=== PATIENT | male | born 1980 | race Hispanic/Latino ===

== ENCOUNTER 2016-12-05 06:04 | Day surgery (SDC) | payer OTHER ==
[2016-12-02 09:51] VITALS: BMI 27.6
[2016-12-05 06:43] VITALS: RESP 20
[2016-12-05] MEDS ORDERED: Lactated Ringer's 1,000 ML IV ONE ×2 (06:56→11:35)
[2016-12-05] MEDS ORDERED: Propofol 10 mg/ml Inj (20 ML) ONE (07:15)
--- NOTE | 2016-12-05 07:30 | CP.PCM.PN ---
Subjective - Date & Time of Evaluation Date of Evaluation: 12/05/16 Time of Evaluation: 07:26 - Subjective Subjective: 36 year old male with no PMH presents to [facility] for left ankle scope, arthoscopic OCD repair, and deltoid ligament repair by Dr. Lr. Patient states that he has been experienced pain over the last few months and getting progressively worse, worse with ambulation or running. He states he did not eat or drink anything since 6pm last night. Denies n/v/sob/cp/chills or f. Meds: migraine medication, can't recall name Allergies: procaine, cephalexin, rojo, strawberry PSH: left ankle surgery, right knee surgery FH: none SH: denies smoking, occasionally drinking, denies elicited drug use Objective - Vital Signs/Intake and Output Vital Signs (last 24 hours): Temp Pulse Resp BP Pulse Ox 97.9 F 59 L 20 140/72 98 12/05/16 06:33 12/05/16 06:44 12/05/16 06:33 12/05/16 06:33 12/05/16 06:33 - Constitutional Appears: Well, Non-toxic, No Acute Distress - Extremities Exam Additional comments: Vasc: DP PT 2/4 bilaterally, SILK SCREEN ETCHER <3 seconds, temperature WNL, no edema noted Ortho: MM is 5/5 in all four compartments bilaterally, moderate pain with palpation to the medial ankle at deltoid ligaments and medial plantar arch, some pain with left ankle ROM Neuro: gross sensation intact bilaterally Derm: skin is hydrate, no lesions noted, derm WNL - Neurological Exam Neurological Exam: Alert, Awake, Oriented x3 - Psychiatric Exam Psychiatric exam: Normal Affect, Normal Mood Assessment and Plan - Assessment and Plan (Free Text) Assessment: 36 year old with no PMH was seen for [facility] surgery for left ankle scope, arthroscopic OCD repair, and deltoid ligament repair Plan: Pt was seen and examined in [facility] Pt NPO status was confirmed All pre-op testing and clearance was in the chart Pt has exhausted all conservative treatment at this time and is opting for surgical intervention Pt was explained procedure and post-operative course All pt's questions were answered to sanctification No guarantees were made Pt understands all risks, benefits, and complications of procedure Pt will follow up with Dr. Lr
[2016-12-05] MEDS ORDERED: Ropivacaine 0.5% 30ML IV ONE (07:34)
[2016-12-05] MEDS ORDERED: Lidocaine 1% Inj (20ml) IJ ONE (07:43)
[2016-12-05] MEDS ORDERED: Bupivacaine HCl 0.5% PF (30 ml) Inj IJ ONE (07:43)
[2016-12-05] MEDS ORDERED: Midazolam 2 MG/2 ML VIAL ONE (07:46)
--- NOTE | 2016-12-05 08:03 | CP.SDSHP ---
Same Day Surgery H & P - History Proposed Procedure: left ankle deltoid ligament repair with internal brace, talar subcondroplasty and ankle arthroscopy with debridement, possible repair of posterior tibial repair Pre-Op Diagnosis: left ankle deltoid ligament injury, talar subcondral defect, ankle pain - Allergies Allergies: Allergies rojo Allergy (Verified 12/02/16 09:51) SHORTNESS OF BREATH strawberry Allergy (Verified 12/02/16 09:51) SHORTNESS OF BREATH cephalexin Adverse Reaction (Verified 12/02/16 09:50) RASH PROCAINE Adverse Reaction (Uncoded 12/02/16 09:50) RASH - Physical Exam Vital Signs: Vital Signs 12/05/16 12/05/16 06:33 06:44 Temperature 97.9 F Pulse Rate 59 L 59 L Respiratory 20 Rate Blood Pressure 140/72 O2 Sat by Pulse 98 Oximetry Mental Status: Alert & Oriented x3 - {Optional Preform as Required} Integument: WNL - Impression Impression: Pt was seen and examined in [facility]. Pt NPO status was confirmed. All pre-op testing and clearance was in the chart. Pt has exhausted all conservative treatment at this time and is opting for surgical intervention. Pt was explained procedure and post-operative course. All pt's questions were answered to sanctification. No guarantees were made. Pt understands all risks , benefits, and complications of procedure. Pt will follow up with Dr. Lr Short Stay Discharge - Short Stay Discharge Admitting Diagnosis/Reason for Visit: S93.422A M25.572 M93.164 Disposition: HOME/ ROUTINE Referrals: Sarah Lr DPM [Primary Care Provider] - Follow-up: Follow up in clinic with Dr. Lr Additional Instructions (Diet, Activity): Resume home meds Resume diet Progress Note/Discharge Note with Instructions: Patient evaluated bedside in recovery s/p surgical procedure After surgical procedure patient in NAD + void and + appetite capillary refill time <3 seconds and NVSI intact Patient denies complaints at this time Post operative instructions and plan of care explained to patient at length Pt acknowledges understanding Patient stable for DC per podiatry standpoint Patient in good/stable condition for discharge home. Pt to resume medications per medical reconciliation. Resume regular diet. Please keep dressing clean, dry and intact to surgical site, call clinic if you see signs of infection (redness, swelling, malodor), please make an appointment to see Dr. Lr in office within 1 week for postop check.
[2016-12-05] MEDS ORDERED: Dexamethasone 4 mg/1 ml ONE (08:17)
[2016-12-05] MEDS: Bupivacaine 0.5% Inj(30mL) ONE ×2 (08:59→11:52)
[2016-12-05] MEDS ORDERED: Sevoflurane - Inhalation Anesthetic Liq (250 ml) ONE (10:57)
[2016-12-05] MEDS ORDERED: Phenylephrine 10 mg/ml Inj ONE (11:14)
[2016-12-05] MEDS ORDERED: MethylPREDNISolone Depo 40 mg/ml Inj ONE (11:49)
[2016-12-05] MEDS ORDERED: Bupivacaine HCl 0.5% PF (30 ml) Inj ONE (11:50)
[2016-12-05] MEDS ORDERED: Oxycodone/Acetaminophen 5/325 mg Tab PO PRN ×3 (12:15→15:54)
[2016-12-05] MEDS ORDERED: Lactated Ringer's 1,000 ML IV SCH (12:21)
[2016-12-05] MEDS ORDERED: HYDROmorphone 0.5 mg/0.5 ml ISec IVP PRN (12:21)
--- NOTE | 2016-12-05 12:21 | PCM.SURG1 ---
Surgeon's Initial Post Op Note - Surgeon's Notes Surgeon: Dr. Lr DPM Bar Assistant: Dr. Yamilet Arthur DPAva PGY-1 Type of Anesthesia: General LMA Anesthesia Administered By: Dr. Naranjo Pre-Operative Diagnosis: left ankle deltoid ligament injury, left subcondral defect, left ankle pain Operative Findings: see dications. materials: 3-0 vicryl, 4-0 nylon, 4.75 suture anchor swiveLock, 3.5 suture anchor swirelock, 2.4 suture roger, 2.0 fiberwire. injectables: 15 cc of .5% marcaine plain and 1cc of Depo 40, bone graft substitute Post-Operative Diagnosis: same Operation Performed: left ankle deltoid ligament repair with internal brace, talar subcondroplasty and ankle arthroscopy with debridement, repair of posterior tibial tendon Specimen/Specimens Removed: none Estimated Blood Loss: EBL {In ML}: 10 Blood Products Given: N/A Drains Used: No Drains Post-Op Condition: Good Date of Surgery/Procedure: 12/05/16 Time of Surgery/Procedure: 12:23
--- NOTE | 2016-12-05 12:24 | PCM.ANESB2 ---
Popliteal Nerve Block - Popliteal Nerve Block Date of Procedure: 12/05/16 Anesthesiologist: mikey Pre-Procedure Diagnosis: left ankle instability Post-Procedure Diagnosis: same Procedure Performed: Popliteal Nerve Block Left - Procedure Popliteal Nerve Block: This procedure was explained to the patient that it is for post-operative pain management. Consent was obtained after a thorough discussion with the patient regarding the benefits and possible complications of local anesthetic block of the sciatic nerve at the popliteal level. The patient was brought to the operating room and standard monitors are applied. Time-out was held with the circulating nurse to confirm the correct surgery and the appropriate block. Under general anesthesia, patient's operative leg was gently raised and supported and the groove in between the biceps femoris and vastus lateralis muscles was carefully palpated. The skin approximately 8cm above the popliteal crease was then marked. The ultrasound transducer was then applied to the posterior thigh approximately 8cm above the popliteal crease in the transverse plane and the sciatic nerve before its division was visualized lateral to the popliteal artery and in between the bicep femoris and semimembranosus/ semitendinosus muscles. After identification, the lateral portion of the thigh was prepped with Betadine solution three times. At this point, a # 21 gauge Stimuplex insulated 4 inch needle was inserted into pre-marked area and advanced in a perpendicular direction. The needle was inserted above the ultrasound transducer in-plane towards the sciatic nerve in a [id number] direction. Needle advancement was performed carefully under direct ultrasound visualization. Nerve stimulator was used and dorsiflexion of the ___left__ foot was elicited at a current of _0.5____ MA. After repeated negative aspiration, __2___cc of _0.5____ % ____ropivicaine was injected and this was flowed with __18____ cc of __0.5____% __ropivicaine ___. Under ultrasound guidance the local anesthetics were observed tenting the epidural sheath and surrounding the roots of the sciatic nerve. The needle was removed intact and sterile dressing was applied. The patient tolerated the popliteal nerve block well with stable vital signs and was subsequently prepared for the surgery.
[2016-12-05 13:28] VITALS: TEMP 97.7; O2SAT 98
--- NOTE | 2016-12-05 14:39 | RAD ---
PROCEDURE: Left Foot Radiographs. HISTORY: s/p left ankle surgery COMPARISON: None. FINDINGS: BONES: No identifiable fractures or evidence of surgical resection of osseous structures. Limitations of the current study: Detail obscured by overlying fiberglass cast. JOINTS: Normal. SOFT TISSUES: Eight identified within the soft tissues posteriorly at the level of the talus. OTHER FINDINGS: None. IMPRESSION: Postoperative findings as described above.
--- NOTE | 2016-12-05 14:40 | RAD ---
PROCEDURE: Left Ankle Radiographs. HISTORY: s/p left ankle surgery COMPARISON: None FINDINGS: BONES: No acute fractures. JOINTS: Normal. No osteoarthritis. Ankle mortise maintained. Talar dome intact SOFT TISSUES: Diffuse soft tissue swelling about the ankle. For air identified within the subcutaneous soft tissues consistent with recent surgery. OTHER FINDINGS: None. IMPRESSION: Soft tissue swelling without acute articular or osseous abnormality.
[2016-12-05 15:43] VITALS: BP 147/70; PULSE 89
[2016-12-06] MEDS ORDERED: TOPIRAMATE 100 MG PO SCH (09:00)
[2016-12-06] MEDS ORDERED: Enoxaparin 30 mg Syringe IV SCH (09:00)
--- NOTE | 2016-12-09 10:33 | PCM.OP ---
Operative Report - Operative Report Date of Surgery/Procedure: 12/05/16 Time of Surgery/Procedure: 08:00 Surgeon: Dr. Sarah Lr Melt Supervisor: Yamilet Arthur PGY-3 Anesthesia/Sedation: General, popliteal and saphenous block Pre-Operative Diagnosis: Left ankle deltoid injury, posterior tibial tendon tear , ankle pain, talar subchondral defect Post-Operative Diagnosis: Same Indication for Surgery: This is a 36 year old male with the above mentioned diagnoses. The patient has exhausted conservative treatment at this time and is now requesting surgical intervention. The patient signed the consent after careful explanation of risks, benefits, complications and alternatives to surgical procedure. No guarantees were given nor implied. 2 g of Ancef IV were given to the patient prior to the procedure. NPO status was confirmed prior to taking the patient to the operating room. Operative Findings: Preparation: The patient was brought into the operating room and placed on the operating table in supine position. A well padded pneumatic thigh tourniquet was placed to the patients left thigh. The left foot and ankle were prepped and draped in the usual sterile manner and the procedure began. Procedure/Operation Description: Procedure #1: Ankle arthroscopy: Attention was then directed to the dorsal aspect of the patients left ankle where the ankle was infiltrated with approximately 30 cc of 0.5% Marcaine with saline. Next utilizing a surgical marking pen, anatomical landmarks were marked such as the tibialis anterior tendon and the medial and lateral gutters were identified. Next utilizing a #11 blade, a medial portal was created. Utilizing a hemostat down to the level of ankle joint, the ankle joint was then entered. Next, the 2.7 scope was inserted into the medial portal. There was an abundance of hypertrophic synovium as well as fibrous bands within the ankle joint. Next, a lateral portal was created utilizing a #15 blade and hemostat down to the level of the ankle joint. Next a trocar was placed into the lateral portal and triangulated along with the 2.7 scope. Next, a 3.5 aggressive shaver was inserted into the lateral ankle portal and dbridement of the hypertrophic synovium and fibrous bands began. The ankle joint was inspected for any osteochondral defect. No osteochondral defect was noted. Next, the 2.7 scope and 3.5 aggressive shaver switched portals and debridement of the medial aspect of the ankle was performed. The 2.7 scope and a 3.5 aggressive shaver were removed from each portal. The ankle joint was then flushed with copious amounts of sterile normal saline. The skin was reapproximated and coapted utilizing #3- 0 nylon in simple suture technique. Procedure #2: Left talar subchondroplasty: Attention was then directed to the left ankle. Under C-arm guidance, the proper trajectory for the guidewire was marked, from inferolateral talus to superomedial talus at the posterior aspect, into the area of the subchondral defect. The guide wire was then removed from the field and the drill from the subchondroplasty set was carefully drilled along this trajectory, aiming for the defect in the posteromedial talus. The positioning was checked under fluoroscopy, with care being taken not to violate cortex of the talus. Once proper positioning was obtained, the bone substitute material was prepared on the back table and placed into syringes for the procedure itself. The syringes were then luer locked to the drill and inserted into the the defect. There was no extravasation of the bone substitute visible on fluoroscopy, and this was checked arthroscopically as well. The bone substitute was allowed to dry for 10 minutes. The wound was copiously irritated with normal sterile saline. The wound was closed using 4-0 vicryl. Procedure #3: Deltoid ligament repair with internal brace. Attention was directed to the medial aspect of the left ankle. An approximately 4 cm curvilinear incision was created beginning at the medial malleolus and extending distally over the sustentaculum jose miguel. The incision was deepened through the subcutaneous tissues, with care being taken to identify and retract all vital neurovascular structures. All bleeders were cauterized and ligated as necessary. Next, the posterior tibial tendon was indentified and retracted plantarly. A periosteal incision was created over the medial malleolus and dissection was carried down to the bone to expose the medial malleolus. Next, the 3.4 mm drill bit from the arthrex set was drilled into the medial malleolus. The 4.75 mm tap was then used to tap the drill hole. Next, the 4.75 mm swivel lock was inserted into the hole. Next, a k-wire from the set was drilled into the body of the talus. The 2.7 mm cannulated drill bit was then drilled over the wire, and the 3.5 mm tap was used to tap the hole. Next, the 3.5 mm swivelock was insterted into the hole with one arm of the fibertape from the 4.75 mm swivelock. The process was repeated for the sustentaculum, however the posterior tibial tendon was unable to be retracted far enough superiorly to allow for proper positioning of the fibertape. Therefore the fibertape was cut and an arthrex suture roger was used in the sustentaculum. The suture was then threaded under the PT tendon and was sutured through the remaining deltoid and capsular structes in order to reinforce the construct. Procedure #4: Posterior tibial tendon repair. The posterior tibial tendon longitudinal tear was indentified and repaired in a running baseball stitch fashion using 3-0 vicryl. The tendon was examined and was successfully retubularized. The wound was copiously irrigated with sterile saline, and incisions were closed with 4-0 nylon suture. 1 mg of depo-medrol 40 mg/ml was injected postoperatively along with 15 ml of 0.5 % marcaine plain. The foot was dressed with betadine adaptic, 4x4s, kerlix and a posterior splint was applied. Estimated Blood Loss: 10 ml Complications: none Discharge & Condition: stable
== END 2016-12-05 15:48 | disposition home or self-care (01) ==
LOC: H.OPSURG 06:04
PROVIDERS: ATTEND Student in an Organized Health Care Education/Training Program
DX: S96.812A Strain of other specified muscles and tendons at ankle and foot level, left foot, initial encounter (principal); X58.XXXA Exposure to other specified factors, initial encounter; M25.572 Pain in left ankle and joints of left foot; M93.272 Osteochondritis dissecans, left ankle and joints of left foot; S93.422A Sprain of deltoid ligament of left ankle, initial encounter
CPT/HCPCS: 27695; 29897; 73610; 73620; 97161; C1713; C1776; G8978; G8979; G8980; J1030; J1100; J1885; J2001; J2250; J2370; J2405; J2704; J2765; J3010; J7030; J7120